=== PATIENT | male | born 1995 | race Caucasian/White ===

== ENCOUNTER 2024-02-23 09:35 | Emergency (ER) | payer SELFPAY ==
[2024-02-23 09:37] VITALS: BP 150/92; BMI 40.0
[2024-02-23 09:39] VITALS: BP 150/92
[2024-02-23 09:58] LABS: % Basophils 0.3 % (0-2); % Eosinophils 1.5 % (0-6); % Immature Granulocytes 0.5 % (0-0.5); % Lymphocytes 29.4 % (20.5-51.1); % Monocytes 5.6 % (1.7-9.3); % Neutrophils 62.7 % (42.2-75.2); Absolute Eosinophils 0.1 10^3/uL (0-0.7); Absolute Lymphocytes 1.9 10^3/uL (1.2-3.4); Absolute Monocytes 0.4 10^3/uL (0.1-0.6); Absolute Neutrophils 4.1 10^3/uL (1.4-6.5); Hematocrit 43.2 % (39.0-52.0); Hemoglobin 15.2 g/dL (13.0-18.0); Mean Corp Hgb Conc. 35.2 g/dL (33.0-37.0); Mean Corpuscular Hgb 29.9 pg (27.0-31.0); Mean Corpuscular Volume 84.9 fL (80.0-94.0); Mean Platelet Volume 9.7 fL (7.4-10.4); Nucleated Red Blood Cells % 0 % (-); Platelet Count 205 10^3/uL (130-400); Red Blood Cell Count 5.09 10^6/uL (4.70-6.10); Red Cell Dist. Width 12.4 % (11.5-14.5); White Blood Cell Count 6.5 10^3/uL (4.8-10.8)
[2024-02-23 10:00] VITALS: BP 137/83
[2024-02-23 10:07] LABS: ALT (SGPT) 47 U/L (0-50); AST (SGOT) 32 U/L (17-59); Albumin 4.4 g/dl (3.5-5.0); Alkaline Phosphatase 95 U/L (38-126); Blood Urea Nitrogen 18 mg/dl (9-20); Calcium 9.3 mg/dl (8.4-10.2); Carbon Dioxide 22 mmol/L (22-30); Chloride 105 mmol/L (98-107); Estimated Creatinine Clearance > 125 ml/min; Glucose 101 mg/dl (70-99); Potassium 4.1 mmol/L (3.5-5.1); Sodium 138 mmol/L (135-145); Total Bilirubin 0.3 mg/dl (0.2-1.3); Total Protein 6.5 g/dl (6.3-8.2); eGFR > 60.00
[2024-02-23 10:19] LABS: Troponin I < 0.012 ng/ml
--- NOTE | 2024-02-23 11:42 | ED.GENMED ---
History of Present Illness
General
Chief Complaint: Chest Pain
Source: patient and ambulance crew
Exam Limitations: none
Time Seen by Provider: 02/23/24 09:44
Nursing documentation reviewed up to this point in time: agreed with
Travel History
Have you had any contact with someone who has COVID-19?: No
Do you have any symptoms of coronavirus? Fever > 100 degrees, chills, cough, shortness of breath, sore throat, loss of taste or smell, muscle aches, or headache?: No
History of Present Illness
History of Present Illness:
Patient is a 28-year-old male history of bipolar personality disorder that was brought from [facility] after altercation with staff. Patient presents today awake alert no acute distress. Patient has no cardiac history. On initial exam I
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 In history it is reported that he has bipolar disorder /borderline personality disorder. When asked he denies any
suicidal homicidal thoughts. He denies any drug use.
Several minutes later pt was agreeable to giving history. Patient reports he believes he had chest pain because he drank too much coffee. He currently denies chest pain . He reports the pain in the center of his chest that resolved on its own.
He had no associated shortness of breath nausea vomiting.
Review of Systems
Review of Systems
Allergies reviewed?: Yes
All Other Systems: ROS reviewed and negative except as documented in HPI and ROS
Constitutional: Reports no symptoms; Denies fever, fatigue or chills
Respiratory: Reports no symptoms
Cardiac: Reports chest pain (denies now )
ABD/GI: Reports no symptoms
Musculoskeletal: Reports no symptoms
Skin: Reports no symptoms
Neurological: Reports no symptoms
Psychiatric: Reports no symptoms
Phy Exam
General Physical Exam
General Presentation: well appearing
General age: appears stated age
General Skin: warm and dry
General Habitus: normal
General Mental: alert
General Hydration: appears well hydrated
Cardiovascular Exam
Cardiovascular Exam: regular rate/rhythm
Pulmonary Exam
Pulmonary Exam: lungs clear and no respiratory distress
Neurological Exam
Neurological Exam: alert and oriented x3
Esequiel Coma Scale
Eye Opening: Spontaneous
Verbal Response: Oriented
Motor Response: Obeys Commands
GCS Total Score: 15
Musculoskeletal Exam
Musculoskeletal Exam: full ROM
Skin Exam
Skin Exam: normal color and warm/dry
Psychiatric Exam
Psychiatric Exam: normal mood/affect
Scores
Heart Score for Chest Pain Patients
STEMI patient?: Not applicable
Course
Orders/Labs/Results
Orders:
Orders
02/23/24 09:41
Electrocardiogram (*1) Urgent
Reason for Study: Chest Pain
EKG- Treatment ONCE
02/23/24 09:49
Complete Blood Count/With Diff Urgent
Comprehensive Metabolic Panel Urgent
Troponin I Urgent
02/23/24 10:37
Chest [CR Chest - 2 Views ] Urgent
Comment:
Reason For Exam: cp
02/23/24 14:50
PSYCHIATRY CONSULT Urgent
Consulting Provider: Klaus Banegas
Was physician already notified: Yes
Abnormal Lab Results
02/23/24
09:49
Creatinine 0.6 L mg/dL
(0.7-1.3)
Glucose 101 H mg/dl
(70-99)
02/23/24 09:49
02/23/24 09:49
Vital Signs
Initial and Last Documented VS:
Initial Vital Signs
Temp Pulse Resp BP Pulse Ox
98.2 F 108 18 150/92 97
02/23/24 09:37 02/23/24 09:37 02/23/24 09:37 02/23/24 09:37 02/23/24 09:37
Last Documented Vital Signs
Temp Pulse Resp BP Pulse Ox
98.2 F 97 18 148/79 97
02/23/24 09:37 02/23/24 12:17 02/23/24 12:17 02/23/24 12:17 02/23/24 12:17
MDM/Problems Addressed
Differential Diagnosis Includes:
not limited to: muscular chest pain
MDM/Problems Addressed:
28 yr old male brought from [facility] via [place] very very difficult house for episode of chest pain after altercation with staff. Patient was given aspirin by EMS however arrives to the ED asymptomatic. Patient initially would not give history
but then was agreeable to give history and remained chest pain-free. He had normal cardiac troponin no acute findings on EKG no complaints of shortness of breath or chest pain no acute findings on chest x-ray stable for discharge back to [facility]
[place].
1330: I received a call from Jose ( programming intern) at [facility] stating that pt was very explosive angry threatening to staff physically damaging and they will not accept him back.
I spoke with father Srikanth over the phone [phone]
landline : [phone] who does not feel comfortable with pt coming back home
I spoke with Juana at [facility] who spoke with Jose at [facility] who will not file a 302 It is a voluntary program.
Pt has no suicidal thoughts
1449 : While waiting here in the ER pt eloped with IV line in place. Police called
*Radiology
Radiology exam reviewed: radiology read reviewed
*Pulse Oximetry
Patient hypoxic: no
*EKG
Interpreted by ED Provider?: Yes
Heart Rate: 107
Rate: tachycardiac
*Critical Care Note
Total Time (30-74mins, 75-104mins- exclusive of procedures): Not Applicable
ED Attending Note
-
Portions of this chart may have been created with voice recognition software.� Occasional wrong word or��sound alike� substitutions may have occurred due to the inherent limitations of voice recognition software.
Discharge Plan
Departure
Patient Disposition: Elopement
Date of Disposition: 02/26/24
Time of Disposition: 15:23
Patient with high blood pressure during this ER visit?: Yes
Covid-19: Not Applicable
Discharge Problem:
Chest pain
Instructions: Chest Pain PCP Follow Up
Referrals:
Juan Islas MD [Family Provider] -
Activity Restrictions/Additional Instructions:
Patient must be eval by family doctor in the next several days for reevaluation of symptoms. Return if any worsening of symptoms.
Interventions
Interventions:
*Risk Screen - Suicide Last Done: 02/23/24 09:37
*General Assessment Last Done: 02/23/24 09:37
*Neglect/Abuse Screening Last Done: 02/23/24 09:37
ED- Fall Risk Assessment Last Done: 02/23/24 09:37
*ED COVID-19 Vaccine History Last Done: 02/23/24 09:37
*Nursing Disposition Last Done: 02/23/24 15:15
ED- Cardiac Assessment Last Done: 02/23/24 09:37
Discharge Date and Time
Discharge Date/Time: 02/23/24 15:00
Print Language: CZECH
[2024-02-23 12:17] VITALS: BP 148/79
== END 2024-02-23 15:00 | disposition left against medical advice (07) ==
LOC: EMR 09:35
PROVIDERS: CONSULT PHYSICIAN Psychiatry & Neurology Psychiatry; EMERGENCY PHYSICIAN Emergency Medicine; FAMILY PHYSICIAN Internal Medicine
DX: R07.89 Other chest pain (principal); R03.0 Elevated blood-pressure reading, without diagnosis of hypertension
CPT/HCPCS: 99285; 71046; 80053; 84484; 85025; 93005